=== PATIENT | male | born 1955 | race Caucasian/White ===

== ENCOUNTER 2017-12-07 23:04 | Emergency (ER) | payer MEDICAID ==
[2017-12-08] MEDS: KETOROLAC 60 MG INJ IM (01:03)
== END 2017-12-08 01:12 | disposition home or self-care (01) ==
LOC: FTE 23:04
DX: M25.552 Pain in left hip (principal); Z85.46 Personal history of malignant neoplasm of prostate
CPT/HCPCS: 96372; 99284-25